=== PATIENT | female | born 1945 | race Caucasian/White ===

== ENCOUNTER 2023-01-07 14:31 | Outpatient (CLI) | payer MEDICARE, OTHER ==
[~2023-01-07] VITALS: Ht 167.6 cm; Wt 62.1 kg
[2023-01-07] MEDS ORDERED: OMEG100032 PO (15:38)
[2023-01-07] MEDS ORDERED: CHOL500049 PO (15:38)
[2023-01-07] MEDS ORDERED: ACET-2267 PO (15:38)
[2023-01-07] MEDS ORDERED: CALC600T91 PO (15:38)
[2023-01-07] MEDS ORDERED: ROSU10TA28 PO (15:38)
[2023-01-07] MEDS ORDERED: L.RH1CAP4 PO (15:38)
[2023-01-07] MEDS ORDERED: GEMF600T88 PO (15:38)
[2023-01-07] MEDS ORDERED: MAGN30TA2 PO (15:38)
== END 2023-01-07 15:56 | disposition home or self-care (01) ==
LOC: PREOP 14:31
PROVIDERS: ATTEND Orthopaedic Surgery
DX: Z01.818 Encounter for other preprocedural examination (principal)

== ENCOUNTER → 2023-01-07 | Outpatient (CLI) | payer MEDICARE, OTHER ==
[~2023-01-07] MED LIST: ACET-2267 PO; CALC600T91 PO; CHOL500049 PO; GEMF600T88 PO; L.RH1CAP4 PO; MAGN30TA2 PO; OMEG100032 PO; OXC5T PO; ROSU10TA28 PO
== END ==
LOC: ORTHO 13:22
PROVIDERS: ATTEND Orthopaedic Surgery
DX: M23.41 Loose body in knee, right knee (principal)
CPT/HCPCS: 99203

== ENCOUNTER 2023-01-11 09:21 | Day surgery (SDC) | payer MEDICARE, OTHER ==
[~2023-01-11] VITALS: Ht 167.6 cm; Wt 62.1 kg
[2023-01-11] VITALS (10 sets, daily range): BP systolic 104–133; BP diastolic 58–80
[~2023-01-11 09:21] MED LIST changes: -OXC5T PO
[2023-01-11] MEDS ORDERED: ceFAZolin INJECTION 2,000 MG in NS (IVPB) 50 ML 50 ML IV ONE (09:30)
[2023-01-11] MEDS: LACTATED RINGERS 1,000 ML 1,000 ML IV PRN ×2 (09:50→12:17)
[2023-01-11] MEDS ORDERED: LIDOCAINE 2% w/EPI 1:100,000 20 ML VIAL ONE (11:31)
[2023-01-11] MEDS ORDERED: LIDOCAINE 2% w/EPI 1:100,000 20 ML VIAL INJ ONE (11:37)
[2023-01-11] MEDS ORDERED: SEVOFLURANE (ULTANE) 15 ML INHAL SOLN ONE (11:40)
[2023-01-11] MEDS ORDERED: ONDANSETRON INJECTION 4 MG/2 ML (SDV) ONE (11:40)
[2023-01-11] MEDS ORDERED: LIDOCAINE PF 2% 5 ML VIAL ONE (11:40)
[2023-01-11] MEDS ORDERED: MIDAZOLAM INJ 2 MG/2 ML VIAL ONE (11:40)
[2023-01-11] MEDS ORDERED: proPOfol INJECTION 200 MG/20 ML VIAL IV ONE (11:40)
[2023-01-11] MEDS ORDERED: fentaNYL INJECTION 100 MCG/2 ML VIAL ONE (11:40)
--- NOTE | 2023-01-11 11:43 | Progress Note-Pre Operative ---
Pre-Operative Progress Note Date of Available H&P: Jan 07, 2023 Date H&P Reviewed: Jan 11, 2023 Time H&P Reviewed: 11:35 History & Physical: H&P Reviewed, Patient Examed, No changes noted Pre-Operative Diagnosis: Right Knee Loose Body JEISON JUÁREZ MD Jan 11, 2023 11:43
--- NOTE | 2023-01-11 12:35 | Operative Report - Ortho ---
Operative Report Surgeon (s)/Tie Loader (s) Surgeon JEISON JUÁREZ MD Tie Loader n/a Pre-Operative Diagnosis Right Knee Loose Body Post-Operative Diagnosis same Operative Report Date of Procedure: Jan 11, 2023 Name of Procedure Performed: Right Knee Arthroscopy with Loose Body Description & Findings After obtaining informed consent and marking the patient in the preoperative holding area, the patient was administered IV antibiotics and taken to the operating room. General anesthesia was induced. The left lower extremity was placed in the well leg oneill and the right leg was placed in the arthroscopic oneill. Surgical timeout was taken. The right lower extremity was prepped and draped in the usual sterile fashion. An anterolateral portal was established and a diagnostic knee arthroscopy was performed with the following findings: the patellofemoral portion of the joint demonstrated grade II and III change, the patella tracked well through the trochlear groove, the gutters were free of loose bodies, the medial meniscus was intact, grade II and focal grade III change in the medial compartment, ACL was intact and there was a loose body present in the notch, lateral compartment with intact meniscus and grade II articular cartilage change. An anteromedial portal was established. Grasper was inserted and the loose body was removed without difficulty. Instruments were withdrawn. Wounds were closed with 3-0 nylon and dressed with xeroform, 4x4s, ABD, cast padding, and DONG wrap. Patient tolerated the procedure well and was stable to the recovery room. Anesthesia Type General Estimated Blood Loss minimal Packing none. Specimen(s) collected/removed Loose body (not sent) JEISON JUÁREZ MD Jan 11, 2023 12:35
[2023-01-11] MEDS ORDERED: OXC5T PO (12:37)
--- NOTE | 2023-01-11 12:44 | Anesthesia-General Post-Op ---
General Patient Condition Mental Status/LOC: Same as Preop Cardiovascular: Satisfactory Nausea/Vomiting: Absent Respiratory: Satisfactory Pain: Controlled Complications: Absent Post Op Complications Complications None Follow Up Care/Instructions Patient Instructions None needed. Anesthesia/Patient Condition Patient Condition Patient is doing well, no complaints, stable vital signs, no apparent adverse anesthesia problems. No complications reported per nursing. MARIA L HARMON CRNA Jan 11, 2023 12:44
[2023-01-11] MEDS ORDERED: MEPERIDINE INJ 50 MG/ML VIAL IVP ONE (12:45)
[2023-01-11] MEDS ORDERED: morphine INJ 10 MG/ML 1ML (SYR OR VIAL) IVP ONE (12:45)
[2023-01-11] MEDS ORDERED: ONDANSETRON INJECTION 4 MG/2 ML (SDV) IVP PRN (12:45)
== END 2023-01-11 14:20 | disposition home or self-care (01) ==
LOC: SDC 09:21
PROVIDERS: ATTEND Orthopaedic Surgery
DX: M23.41 Loose body in knee, right knee (principal)
CPT/HCPCS: 87081

== ENCOUNTER → 2023-01-26 | Outpatient (CLI) | payer MEDICARE, OTHER ==
[~2023-01-26] MED LIST changes: +OXC5T PO
== END ==
LOC: ORTHO 12:45
PROVIDERS: ATTEND Orthopaedic Surgery
DX: Z47.89 Encounter for other orthopedic aftercare (principal)